=== PATIENT | female | born 1960 | race Caucasian/White ===

== ENCOUNTER 2024-03-25 12:31 | Outpatient (CLI) | payer MEDICARE, SELFPAY ==
--- NOTE | 2024-03-25 12:30 | ECG_ITS ---
SEE SCANNED COPY FOR CONFIRMED REPORT MTDD
[2024-03-25 13:10] LABS: Anion Gap 6 mmol/L (4-12); Blood Urea Nitrogen 17 mg/dL (7-17); Calcium 9.4 mg/dL (8.4-10.2); Carbon Dioxide 30 mmol/L (22-30); Chloride 100 mmol/L (98-107); Estimated Glomerular Filt Rate > 60; Glucose 91 mg/dL (65-110); Sodium 136 mmol/L (137-145)
== END 2024-03-25 12:32 | disposition home or self-care (01) ==
LOC: ANHSURGERY 12:41
PROVIDERS: Anesthesiology; PCP Family Medicine; Visit Provider Urology
DX: Z51.81 Encounter for therapeutic drug level monitoring (principal); I10 Essential (primary) hypertension; Z01.818 Encounter for other preprocedural examination
CPT/HCPCS: 36415; 80048; 93005

== ENCOUNTER 2024-03-28 00:32 | Day surgery (SDC) | payer MEDICARE, SELFPAY ==
[2024-03-21 10:15] VITALS: BMI 38.2
--- NOTE | 2024-03-21 10:40 | PC.NURSE ---
Report to the Outpatient Waiting Room, entrance under the green pavilion located off [facility], at time _8:00AM on date __03/28/24 . Planned Procedure Time: __10:00AM . Time changes happen often and if your time is changed the preop area will call you the afternoon before. - You and your visitor will be asked to self-screen and do not enter if you have any COVID symptoms. - A mask is optional within the hospital at this time. Patients may have clear liquids (water, carbonated beverages, clear teas, apple juice) until 3 hours prior to surgery with a maximum of 20 ounces. - No food from midnight until time of surgery. Take the following medications with a SIP of water the morning of surgery: ALPRAZOLAM & TRAMADOL NEEDED DO NOT STOP ANY OF YOUR OTHER PRESCRIPTION MEDICATIONS PRIOR TO SURGERY ?EXCEPT THE FOLLOWING Medications to discontinue per physician ____HOLD ALL VITAMINS/SUPPLEMENTS 3 DAYS PRE-OP PER ANESTHESIA Date to take last dose 03/24/24 Please no make-up, nail cypriot, hairspray, perfume, deodorant, or body powder the day of surgery. No jewelry (including any body piercings) or valuables the day of surgery, leave them at home. Please take a shower or bath the night before, or the morning of, surgery with an antibacterial soap. Wear comfortable, loose fitting clothing. - Jewelry must be removed prior to entering the operating room. Rings and piercings that are not removed may be cut off. - The hospital will not accept responsibility for valuables. - Please leave all valuables, including medications, at home the day of surgery. If you are going home after surgery, a licensed driver messenger must drive you home. - NO public transportation without another adult if you receive anesthesia. - We recommend that an adult stay with you for 24 hours following discharge. - We also recommend that you do not drive, make important decision, drink alcoholic beverages, or take any drugs that were not prescribed by your health care provider for at least 24 hours after your discharge time. Follow any additional instructions given to you from your surgeon. If you or anyone in your household have experienced Covid symptoms in the past week, please notify your surgeon or the nurse liaison at the phone number below for possible testing. Telephone instructions given to ___PATIENT and asked if any additional questions and then verbalized understanding. Patient advised to call surgeon office or pre surgery nurse liaison [phone] if any additional questions.
--- NOTE | 2024-03-23 20:28 | P.HP_ITS ---
H&P: HPI History of Present Illness Date/Time: 03/23/24 20:28 Chief Complaint: POP Narrative: symptomatic rectocele Review of Systems Review of Systems: All systems reviewed & are unremarkable except as noted in HPI and below [facility] Social History Social History Smoking packs per day: 2 Smoking cigarettes per day: 40.0 Years smoked: 48 Smoking pack-years: 96.00 Smoking status: Former smoker Tobacco type: cigarettes Smoking end date: 05/12/20 Living arrangements: with family Additional living arrangements comments: [facility] Spiritual care concerns: No Meds Home Medications and Allergies Home Medications Medication Instructions Recorded Confirmed Type alprazolam 0.25 mg tablet 0.25 mg PO BID PRN Anxiety 03/21/24 03/21/24 History atorvastatin 10 mg tablet 10 mg PO QAM 03/21/24 03/21/24 History biotin 1,000 mcg chewable tablet 1,000 mcg PO 3XW 03/21/24 03/21/24 History candesartan 16 mg tablet 16 mg PO QAM 03/21/24 03/21/24 History cetirizine 10 mg capsule (Zyrtec) 10 mg PO DAILY 03/21/24 03/21/24 History cholecalciferol (vitamin D3) 50 50 mcg PO DAILY 03/21/24 03/21/24 History mcg (2,000 unit) capsule cranberry concentrate-ascorbic 1 cap PO DAILY 03/21/24 03/21/24 History acid 4,200 mg-20 mg capsule cyanocobalamin (vitamin B-12) 500 500 mcg PO 3XW 03/21/24 03/21/24 History mcg tablet cyclobenzaprine 10 mg tablet 5 mg PO BID 03/21/24 03/21/24 History dextroamphetamine-amphetamine ER 10 mg PO QAM 03/21/24 03/21/24 History 10 mg 24hr capsule,extend release echinacea-thomas seal capsule 1 cap PO DAILY 03/21/24 03/21/24 History esomeprazole magnesium 40 mg 40 mg PO QAM 03/21/24 03/21/24 History capsule,delayed release fluticasone propionate 50 1 spray intranasal BID PRN 03/21/24 03/21/24 History mcg/actuation nasal Congestion spray,suspension (Flonase Allergy Relief) hydrochlorothiazide 25 mg tablet 25 mg PO QAM 03/21/24 03/21/24 History lysine 500 mg tablet (L-Lysine) 500 mg PO DAILY 03/21/24 03/21/24 History tramadol 50 mg tablet 50 mg PO BID PRN Pain 03/21/24 03/21/24 History Allergies Allergy/AdvReac Type Severity Reaction Status Date / Time Sulfa (Sulfonamide Allergy Hives Verified 03/21/24 10:02 Antibiotics) H&P: Results Labs Labs: NAD normal breathing rectocele to introitus Assessment and Plan Assessment and plan (1) Rectocele: Code(s): N81.6 - Rectocele Status: Acute Assessment and Plan: REctocele repair risks, benifits, alternative outlined in office chart
[2024-03-28] VITALS (7 sets, daily range): BP systolic 127–155; BP diastolic 51–112; PULSE 46–79; RESP 14–17; TEMP 36.1; O2SAT 98–100
--- NOTE | 2024-03-28 04:43 | WPDHPUPDATE1 ---
History and Physical Update Update Date/Time: 03/28/24 04:43 History and Physical has been reviewed, including an updated exam of the patient. There are NO changes in the patient's condition. Risks, benefits, and alternatives have been discussed and questions answered. Patient agrees to proceed with procedure.
[2024-03-28] MEDS: LACTATED RINGERS 1,000 ML 30 ML IV CONT (08:48)
--- NOTE | 2024-03-28 08:56 | WPDANESEPPF ---
Anes - Initial Pre Proc Eval Procedure: Operation Date: 03/28/24 10:00 Proposed Procedures p Rectocele Repair - Ke Lambert MD Date/Time: 03/28/24 08:56 Surgeon: Ke Lambert MD Pre Op Diagnosis: rectocele Patient Data Age: 63 Gender: F Height: 1.57 m Weight: 95 kg Allergies Allergy/AdvReac Type Severity Reaction Status Date / Time Sulfa (Sulfonamide Allergy Hives Verified 03/28/24 08:22 Antibiotics) Home Medications Medication Instructions Recorded Confirmed Type alprazolam 0.25 mg tablet 0.25 mg PO BID PRN Anxiety 03/21/24 03/28/24 History atorvastatin 10 mg tablet 10 mg PO QAM 03/21/24 03/28/24 History biotin 1,000 mcg chewable tablet 1,000 mcg PO 3XW 03/21/24 03/28/24 History candesartan 16 mg tablet 16 mg PO QAM 03/21/24 03/28/24 History cetirizine 10 mg capsule (Zyrtec) 10 mg PO DAILY 03/21/24 03/28/24 History cholecalciferol (vitamin D3) 50 50 mcg PO DAILY 03/21/24 03/28/24 History mcg (2,000 unit) capsule cranberry concentrate-ascorbic 1 cap PO DAILY 03/21/24 03/28/24 History acid 4,200 mg-20 mg capsule cyanocobalamin (vitamin B-12) 500 500 mcg PO 3XW 03/21/24 03/28/24 History mcg tablet cyclobenzaprine 10 mg tablet 5 mg PO BID 03/21/24 03/28/24 History dextroamphetamine-amphetamine ER 20 mg PO QAM 03/21/24 03/28/24 History 10 mg 24hr capsule,extend release echinacea-thomas seal capsule 1 cap PO DAILY 03/21/24 03/28/24 History esomeprazole magnesium 40 mg 40 mg PO QAM 03/21/24 03/28/24 History capsule,delayed release fluticasone propionate 50 1 spray intranasal BID PRN 03/21/24 03/28/24 History mcg/actuation nasal Congestion spray,suspension (Flonase Allergy Relief) hydrochlorothiazide 25 mg tablet 25 mg PO QAM 03/21/24 03/28/24 History lysine 500 mg tablet (L-Lysine) 500 mg PO DAILY 03/21/24 03/28/24 History tramadol 50 mg tablet 50 mg PO BID PRN Pain 03/21/24 03/28/24 History Patient hx anesthesia problems: none Family hx anesthesia problems: none Results Review: All pre-operative results and documents have been reviewed as part of the pre-operative evaluation. [facility] Social History Social History Smoking packs per day: 2 Smoking cigarettes per day: 40.0 Years smoked: 48 Smoking pack-years: 96.00 Smoking status: Former smoker Tobacco type: cigarettes Smoking end date: 05/12/20 Living arrangements: with family Additional living arrangements comments: [facility] Spiritual care concerns: No Anes - Eval Final PreProcedure Day of Procedure 03/28/24 08:56 Patient weight: obese Heart: regular rate and rhythm Lungs: clear to auscultation Airway: Mallampati scale and special considerations (Upper caps, missing lower L post teeth. ) Neurological: alert and oriented Last oral intake: >/= 8 hours ASA classification: III Emergent: no Anesthetic plan: proceed Anesthesia type and monitoring: general LMA and standard monitoring Results Review: All pre-operative results and documents have been reviewed as part of the pre-operative evaluation. Long time ex smoker, approx 95 pack year smoker, quit 2019. Prev sleep study neg. Informed Consent: The patient's anesthetic plan and its attendant risks and benefits were discussed with the patient/family/POA. Questions were solicited and answers provided to the satisfaction of the patient/family/POA.
[2024-03-28] MEDS: ceFAZolin 2 GM/D5W 50 ML 2 GM/50 ML BAG IVPB (09:50)
[2024-03-28] MEDS: BUPIVACAINE/EPINEPHRINE 0.5% 50 ML VIAL 30 ML INFILTRATE (10:14)
--- NOTE | 2024-03-28 10:42 | W.PM.PROC2 ---
Procedure Note - Detailed Date of Procedure 03/28/24 Pre-op Diagnosis rectocele Post-op Diagnosis Same Procedure Performed Rectocele repair Surgeon Ke Lambert MD Anesthesia General Indications This with symptomatic rectocele. She desires correction. We discussed a rectocele repair. She understands risks of bleeding, infection, damage surrounding organs, damage to bowel, fistula formation, dyspareunia, recurrent rectocele. She agrees to proceed Findings Rectocele to the level of the introitus. Thin vaginal mucosa. External hemorrhoids Description of Procedure She was correctly identified. Informed consent obtained. From the operating room. She was given general anesthesia. She was placed in dorsal thigh position. She was prepped and draped sterile fashion. Time-out performed. I placed a Protection retractor. She had a large rectocele to the level of the introitus with very thin vaginal mucosa. I placed a Protection retractor. I grasped the rectocele with Allis clamps. I infiltrated subcutaneous tissues with local mixed with epinephrine. I used 20-30 cc. I made a midline vaginal incision over the rectocele. I dissected out laterally and back to the apex the mucosa from the underlying rectovaginal fascia. I did this laterally and all the way back to the apex taking great care not to injure the underlying rectum. She had quite thin peritoneum. I did not enter the peritoneum. I then performed a standard plication rectocele repair. I started the apex. I used interrupted 0 Vicryl sutures. This completely reduced the rectocele. I trimmed excess vaginal mucosa. I then closed the vaginal mucosa with a running 2-0 Vicryl suture. There was excellent hemostasis. There was excellent reduction of the rectocele. There was no undue narrowing of the vagina. Rectal exam was normal. There is no sign of injury. She has a large external hemorrhoid. She was awakened transferred to PACU in stable condition.
[2024-03-28] MEDS: traMADol HCL (*CRX) 50 MG TABLET PO (11:24)
== END 2024-03-28 12:01 | disposition home or self-care (01) ==
PROVIDERS: PCP Family Medicine; Visit Provider Urology
PROC: 0JQC0ZZ Repair Pelvic Region Subcutaneous Tissue and Fascia, Open Approach (ICD-10-PCS; CPT 45560; principal; 2024-03-28 10:00)
DX: N81.6 Rectocele (principal); Z87.891 Personal history of nicotine dependence; E66.9 Obesity, unspecified; Z68.37 Body mass index [BMI] 37.0-37.9, adult
CPT/HCPCS: 57250; A9270; J0690; J1100; J2405; J2704; J7030; J7120

== ENCOUNTER 2025-08-24 03:44 | Day surgery (SDC) | payer MEDICARE, SELFPAY ==
[2025-08-21 16:22] VITALS: BMI 39.0
[2025-08-24] VITALS (18 sets, daily range): BP systolic 131–162; BP diastolic 76–95; PULSE 52–84; RESP 14–26; TEMP 36.6; O2SAT 94–99; BMI 39.9
[2025-08-24 10:20] LABS: Hematocrit 40.4 % (37.0-47.0); Hemoglobin 13.2 g/dL (12.0-15.0); Immature Granulocyte Percent A 0.4 % (0-0.5); Lymphocytes Absolute Auto 2.20 K/mm3 (0.9-3.2); Mean Corpuscular HGB Conc 32.7 g/dl (32-36); Mean Corpuscular Hemoglobin 30.5 pg (26-34); Mean Corpuscular Volume 93.3 fl (80-100); Nucleated Red Blood Cells Absolute Auto 0.000 K/mm3 (0.0-0.012); Nucleated Red Blood Cells Perc 0.0 % (0.0-0.2); Platelet Count Result 200 k/mm3 (150-375); Red Blood Count 4.33 M/mm3 (4.2-5.4); White Blood Count 8.3 K/mm3 (4.5-10.0)
[2025-08-24 10:33] LABS: Anion Gap 9 mmol/L (4-12); Blood Urea Nitrogen 18 mg/dL (7-17); Calcium 9.5 mg/dL (8.4-10.2); Carbon Dioxide 26 mmol/L (22-30); Chloride 101 mmol/L (98-107); Estimated CRCL calculation 69 ml/min; Estimated Glomerular Filt Rate > 60; Glucose 115 mg/dL (65-110); Potassium 4.0 mmol/L (3.4-5.0); Sodium 136 mmol/L (137-145)
--- NOTE | 2025-08-24 11:29 | WPDHPUPDATE1 ---
History and Physical Update Update Date/Time: 08/24/25 11:29 History and Physical has been reviewed, including an updated exam of the patient. There are NO changes in the patient's condition. Risks, benefits, and alternatives have been discussed and questions answered. Patient agrees to proceed with procedure.
--- NOTE | 2025-08-24 11:29 | WPDMODSED ---
Moderate Sedation Note-Pt Data Patient Data Allergies Allergy/AdvReac Type Severity Reaction Status Date / Time Sulfa (Sulfonamide Allergy Hives Verified 08/24/25 10:20 Antibiotics) Home Medications ?Medication ?Instructions ?Recorded ?Confirmed ?Type alprazolam 0.25 mg tablet 0.25 mg PO BID PRN Anxiety 03/21/24 08/24/25 History atorvastatin 10 mg tablet 20 mg PO QAM 03/21/24 08/24/25 History candesartan 16 mg tablet 32 mg PO QAM 03/21/24 08/24/25 History cetirizine 10 mg capsule (Zyrtec) 10 mg PO DAILY 03/21/24 08/24/25 History cholecalciferol (vitamin D3) 50 50 mcg PO DAILY 03/21/24 08/24/25 History mcg (2,000 unit) capsule cranberry concentrate-ascorbic 1 cap PO DAILY 03/21/24 08/24/25 History acid 4,200 mg-20 mg capsule cyclobenzaprine 10 mg tablet 5 mg PO BID 03/21/24 08/24/25 History echinacea-thomas seal capsule 1 cap PO DAILY 03/21/24 08/24/25 History esomeprazole magnesium 40 mg 40 mg PO QAM 03/21/24 08/24/25 History capsule,delayed release fluticasone propionate 50 1 spray intranasal BID PRN 03/21/24 08/24/25 History mcg/actuation nasal Congestion spray,suspension (Flonase Allergy Relief) hydrochlorothiazide 25 mg tablet 25 mg PO QAM 03/21/24 08/24/25 History lysine 500 mg tablet (L-Lysine) 500 mg PO DAILY 03/21/24 08/24/25 History docusate sodium 100 mg capsule 100 mg PO BID #40 caps 03/28/24 08/24/25 Rx (Colace) tramadol 50 mg tablet 50 mg PO Q6H PRN pain #20 tabs 03/28/24 08/24/25 Rx acetaminophen 650 mg 1,300 mg PO Q12H PRN pain 08/21/25 08/24/25 History tablet,extended release (Arthritis Pain Relief (acetaminophen) ER) amlodipine 5 mg tablet 5 mg PO DAILY 08/21/25 08/24/25 History famotidine 10 mg tablet 10 mg PO DAILY 08/21/25 08/24/25 History magnesium glycinate 100 mg (as 200 mg PO DAILY 08/21/25 08/24/25 History glycinate) tablet (Mag Glycinate) vitamin B complex-folic acid 0.4 1 tablet PO 3XW 08/21/25 08/24/25 History mg tablet (B Complex 1 (with folic acid)) Current Medications: Active Medications Sodium Chloride (Normal Saline Iv) 500 mls @ 100 mls/hr IV CONT .Q5H FORMERLY [facility], [facility] Sedation/Anesthesia: No previous sedation/anesthesia problems (including family history). [facility] Social History Social History Smoking packs per day: 2 Smoking cigarettes per day: 40.0 Years smoked: 48 Smoking pack-years: 96.00 Smoking status: Former smoker Tobacco type: cigarettes Smoking end date: 05/12/20 Alcohol intake: former Substance use: never Substance use type: does not use Living arrangements: with family Additional living arrangements comments: [facility] Spiritual care concerns: No Mod Sed Physical Exam Physical Exam Pre Procedural Exam: Normal: Lungs, Heart Size, Heart Rate and Heart Rhythm Hours since solid foods: 12 Hours since liquid intake: 12 Mallampati Classification: class III Internal Medicine - PN: Obj Da Vital Signs Vital Signs: Vital Signs - 24 hr 08/24/25 10:13 Temperature 36.6 C Pulse Rate 76 Respiratory Rate 26 H Blood Pressure 162/81 H Pulse Oximetry 99 Oxygen Delivery Room Air Meds/Results Medications: Active Medications Generic Name Dose Route Start Last Admin Trade Name Freq PRN Reason Stop Dose Admin Sodium Chloride 500 mls @ 100 mls/hr 08/24/25 10:00 Normal Saline Iv IV CONT .Q5H FOR[facility], [facility] Labs 08/24/25 10:11 08/24/25 10:11 Labs: Laboratory Results - last 24 hr 08/24/25 10:11 WBC 8.3 RBC 4.33 Hgb 13.2 Hct 40.4 MCV 93.3 MCH 30.5 MCHC 32.7 RDW 13.2 Plt Count 200 MPV 8.2 Immature Gran % (Auto) 0.4 Neut % (Auto) 59.9 Lymph % (Auto) 26.5 Duc[place]ne % (Auto) 10.1 H Eos % (Auto) 2.5 Baso % (Auto) 0.6 Lymph # (Auto) 2.20 [place]ne # (Auto) 0.8 H Eos # (Auto) 0.2 Baso # (Auto) 0.1 Abs Immat Gran (auto) 0.03 Absolute Neuts (auto) 5.0 Absolute Nucleated RBC 0.000 Nucleated RBC % 0.0 Sodium 136 L Potassium 4.0 Chloride 101 Carbon Dioxide 26 Anion Gap 9 BUN 18 H Creatinine 0.77 Estim Creat Clear Calc 69 Estimated GFR > 60 Glucose 115 H Calcium 9.5 ASA Classification/Sedation ASA Classification/Sedation ASA Class: III Emergent: No Risks: Risks, benefits and alternatives explained and patient/family accepted plan for sedation. Patient re-evaluated immediately prior to sedation.
--- NOTE | 2025-08-24 13:03 | P.PCNCC_ITS ---
Cardiac Cath Procedure Note Date of procedure:: 08/24/25 Performing physician:: CATHETERIZATION LABORATORY REPORT Procedure Date: 08/24/2025 Referring Physician: Dr. Sinclair Anesthesia: Versed and Fentanyl were ordered and given in my presence at 1214, procedure ended at 1259. Supervision of nurse, Mora Grigsby monitored moderate sedation with 2mg Versed and 200mcg Fentanyl was provided for 45 minutes. Pre-op Diagnosis: Abnormal stress test Post-op Diagnosis: Abnormal stress test Procedure(s): Left heart catheterization with coronary angiography Intravascular ultrasound imaging Percutaneous coronary intervention Access Site: Right radial artery Brief History and Clinical Indications: 65-year-old woman with hypertension hyperlipidemia with exertional dyspnea that has been worsening in the last few weeks found to have abnormal nuclear stress test for which cardiac catheterization with possible PCI have been recommended. All risks, benefits and alternatives to left heart catheterization with or without percutaneous coronary intervention was discussed at length with the patient. Risk of complications including but not limited to bleeding, infection, arrhythmia, stroke, worsening kidney function, blood loss, groin hematoma, limb loss, emergency coronary artery bypass grafting, and even were discussed with the patient and all questions were answered. The patient understood and wished to proceed. Time out called, patient name, date of , medical record number, allergies, procedure performed, identify Swimming Pool Serviceperson, patient and staff member concurred with accurate data, procedure carried on. Findings: LEFT HEART CATHETERIZATION FINDINGS: 1. Left main: The left main coronary artery is widely patent without any significant obstructive disease. 2. Left anterior descending: The LAD in its proximal body has eccentric 30-40% calcific stenosis. The remainder of the vessel and its branches have diffuse 10% stenosis. 3. Left circumflex: The left circumflex artery provides 2 OM branches. The proximal left circumflex has 10% stenosis and leads into OM2 branch which has a bout 30-40% stenosis in a very focal region. 4. Right coronary artery: The RCA is a large dominant vessel with 70-80% stenosis in its midbody. The remainder of the vessel has diffuse 10% stenosis. Nitroglycerin 200 mcg IC had been given with repeat angiography still demonstrating the 70-80% stenosis in its midbody. 5. Left ventricle: A. End-diastolic pressure 4 mmHg. B. LV gram deferred. C. No significant gradient across aortic valve on catheter pullback. 6. Opening AO pressure 127/82 and closing AO pressure 125/68 Description of Procedure: Informed consent signed and placed in the chart. Patient transferred to animal laboratory helper room. Prepped and draped in usual sterile fashion. 2% lidocaine injected subcutaneously in right wrist area. 22-gauge venipuncture catheter used to access the right radial artery with the Seldinger technique. 6-FR slender sheath placed in right radial artery. Nitroglycerin 200mcg, Verapamil 2.5mg, and Heparin 5000U was given intraarterial through the sheath. J wire advanced under fluoroscopy. 5F TIG diagnostic catheter crossed the aortic valve for LVEDP and aortic valve gradients. After pull back, it was used to engage the RCA. The 5F TIG was not able to sit well in the LMCA and was exchanged for a JL3.5 diagnostic catheter. Multiple orthogonal angiogram obtained and reviewed. Procedure Description for PCI: Heparin was used for anticoagulation (ACT maintained above 250) Patient loaded with heparin at 70 units/kg. 6F JR4 guide catheter was used to intubate the RCA. 0.014 Runthrough coronary wire was passed in to the rPDA. The lesion was pre-dilated with a 3.0 x 15mm balloon inflated to nominal pressures. A 3.5 x 18mm [employer] [place] TERE was successfully deployed into proximal to mid RCA. IVUS showed minimal malapposition for which a 4.0 x 15mm NC was used to post dilate the stent to high nichole with subsequent step-up and step-down seen on repeat angiography. IC nitroglycerin was administered. All intracoronary equipment was then removed under fluoroscopy and final angiography demonstrated excellent results. Pre-procedure - RASHEED 3 flow Post-procedure - RASHEED 3 flow No angiographic complications identified. Assessment: Successful IVUS guided PCI to the proximal to mid RCA with 3.5 x 18mm [place] TERE; post dilated with a 4.0 x 15mm NC to high nichole with excellent angiographic results. Post Operative Condition: Stable No significant blood loss Disposition: Home Plan: DAPT for 1 year followed by ASA indefinitely. The above findings were discussed with the referring physician. Continue aggressive medical therapy and risk factor modification. Sivakumar Pichardo Interventional Cardiology
[2025-08-24] MEDS: SODIUM CHLORIDE 0.9% IV 1,000 ML 125 ML IV CONT (13:36)
== END 2025-08-24 17:39 | disposition home or self-care (01) ==
PROVIDERS: PCP Family Medicine; Visit Provider Internal Medicine
PROC: 4A023N7 Measurement of Cardiac Sampling and Pressure, Left Heart, Percutaneous Approach (ICD-10-PCS; CPT 93452; principal; 2025-08-24 11:30)
DX: I25.10 Atherosclerotic heart disease of native coronary artery without angina pectoris (principal); E78.5 Hyperlipidemia, unspecified; I10 Essential (primary) hypertension; K58.9 Irritable bowel syndrome, unspecified; F41.9 Anxiety disorder, unspecified; M79.7 Fibromyalgia; Z79.891 Long term (current) use of opiate analgesic; Z90.49 Acquired absence of other specified parts of digestive tract; Z87.891 Personal history of nicotine dependence; Z87.11 Personal history of peptic ulcer disease; Z80.41 Family history of malignant neoplasm of ovary; Z82.49 Family history of ischemic heart disease and other diseases of the circulatory system
CPT/HCPCS: 36415; 80048; 85025; 92978; 93458; A9270; C1725; C1753; C1769; C1874; C1887; C1894; C9600; J1644; J2003; J2250; J2305; J3010; J7040